=== PATIENT | female | born 1975 | race American Indian/Alaskan Native ===

== ENCOUNTER 2017-01-14 07:05 | Inpatient (IN) | payer MEDICAID ==
[2017-01-13 09:52] LABS: Basophils % (Auto) 0.5 % (0.0-1.8); Eosinophils % (Auto) 1.4 % (0.0-4.3); Hematocrit 36.1 % (30.3-42.9); Mean Corpuscular HGB Conc 33 % (30-34); Mean Corpuscular Hemoglobin 27 pg (28-32); Mean Corpuscular Volume 81 fl (79-97); Platelet Count 273 K/mm3 (140-440); Red Blood Count 4.46 M/mm3 (3.65-5.03); Red Cell Distribution Width 13.6 % (13.2-15.2); White Blood Count 5.1 K/mm3 (4.5-11.0)
--- NOTE | 2017-01-13 09:52 | Anesthesia Consultation ---
Anesthesia Consult and Med Hx Date of service: 01/14/17 - Airway Anesthetic Teeth Evaluation: Good ROM Head & Neck: Adequate Mental/Hyoid Distance: Adequate Mallampati Class: Class II Intubation Access Assessment: Probably Good - Pulmonary Exam CTA: Yes - Cardiac Exam Cardiac Exam: RRR - Pre-Operative Health Status ASA Pre-Surgery Classification: ASA2 Proposed Anesthetic Plan: General - Pulmonary Hx Smoking: Yes (former) - Cardiovascular System Hx Heart Murmur: Yes - Central Nervous System Hx Psychiatric Problems: No - Other Systems Hx Alcohol Use: Yes (occas) Hx Cancer: No - Additional Comments Anesthesia Medical History Comments: First surgery. Negative family hx.
--- NOTE | 2017-01-14 07:19 | Short Stay Summary ---
Short Stay Documentation Date of service: 01/14/17 Narrative H&P: Pt is a 41yo BF LMP 12/26/16 presents for surgical evaluation and treatment of Bilateral ovarian cysts. Pelvic u/s showed a multiloculated right ovarian cyst 8.2 x 5.8cm and a multiloculated left ovarian cyst 3.77 x 2.3cm. Uterus 12.0 x 7.5 x 5.1cm. CA125 elevated at 43.02 She is now scheduled for an Exploratory Laparotomy with Bilateral ovarian cystectomy. - History Principal diagnosis: Pelvic mass/Bilateral ovarian cysts H&P: obtained from office Past Medical History: hypertension (no meds) Social history: no significant social history, - Allergies and Medications Current Medications: Allergies No Known Allergies Allergy (Unverified 01/08/17 11:08) Home Medications Medication Instructions Recorded Confirmed Last Taken Type No Known Home Medications [No 01/08/17 01/08/17 Unknown History Reported Home Medications] - Physical exam General appearance: no acute distress Integumentary: no rash HEENT: Atraumatic Lungs: Clear to auscultation Breasts: deferred Heart: Regular rate Gastrointestinal: normal Female Genitourinary: deferred Rectal Exam: deferred Extremities: no ischemia Neurological: Normal speech - Brief post op/procedure progress note Date of procedure: 01/14/17 Pre-op diagnosis: 1. Pelvic pain 2. Bilateral ovarian cysts Post-op diagnosis: same (with extensive pelvic adhesions) Procedure: 1. Exploratory Laparotomy 2. Bilateral Ovarian cystectomy 3. Lysis of extensive pelvic adhesions Anesthesia: GETA, other (YOLANDA block) Findings: An enlarged uterus with normal tubes bilaterally. A large cystic right ovarian mass, densely adherent in the cul-de-sac and to the right pelvic sidewall - it ruptured intra-operatively spilling ~ 100cc chocolate colored fluid. A smaller solid left ovarian mass. Bilateral tuboovarian adhesions. Normal appendix. Surgeon: ELDON JOHNSON Estimated blood loss: other (200ml) Pathology: list (Right ovarian mass with ovarian cyst wall; solid left ovarian mass) Specimen disposition: to lab Condition: stable - Hospital course Hospital course: Unremarkable. - Disposition Condition at discharge: Good Disposition: DC- TO HOME OR SELFCARE - Discharge Diagnoses (1) Status post ovarian cystectomy Status: Resolved Short Stay Discharge Plan Activity: no restrictions Diet: regular Wound: open to air, keep clean and dry Follow up with: PRIMARY CARE, [Primary Care Provider] - 7 Days ELDON JOHNSON MD [Staff Physician] - 14 Days Prescriptions: HYDROcodone/APAP 5-325 [Eleanor 5-325 mg TAB] 1 each PO Q6HR PRN #30 tablet PRN Reason: Pain, Moderate (4-6) Ibuprofen [Motrin] 800 mg PO Q8HR PRN #30 tablet PRN Reason: Moder Pain Unrelieved By Eleanor
[2017-01-14] MEDS ORDERED: LACTATED RINGERS 1,000 ML IV SCH (08:00)
[2017-01-14] MEDS ORDERED: ANCEF/STERILE WATER 2 GM/20 ML 2 GM/20 ML SYRINGE IV NR (09:00)
[2017-01-14] MEDS ORDERED: ZOFRAN ONE (09:00)
[2017-01-14] MEDS ORDERED: DIPRIVAN 10 MG/ML IV ONE (09:00)
[2017-01-14] MEDS ORDERED: ZEMURON IV ONE (09:00)
[2017-01-14] MEDS ORDERED: XYLOCAINE MPF 2% ONE (09:00)
[2017-01-14] MEDS ORDERED: DECADRON ONE (09:00)
--- NOTE | 2017-01-14 09:06 | Anesthesia Day of Surgery ---
Anesthesia Day of Surgery - Day of Surgery Patient Examined: Yes Patient H&P Reviewed: Yes Patient is NPO: Yes
[2017-01-14] MEDS ORDERED: NEURONTIN PO NR (09:30)
[2017-01-14] MEDS ORDERED: MARCAINE-EPI 0.5%-1:200,000 INFILTRATI ONE (09:30)
[2017-01-14] MEDS ORDERED: SUBLIMAZE IV ONE (09:30)
[2017-01-14] MEDS ORDERED: DECADRON IV ONE (09:30)
[2017-01-14] MEDS ORDERED: VERSED IV NR (09:30)
[2017-01-14] MEDS ORDERED: PEPCID IV NR (09:30)
[2017-01-14] MEDS ORDERED: MARCAINE-EPI/PF 0.5%-1:200,000 INFILTRATI ONE ×4 (09:46→09:56)
[2017-01-14] MEDS ORDERED: XYLOCAINE 1% 20 mL ONE (10:00)
[2017-01-14] MEDS ORDERED: LACTATED RINGERS 1,000 ML ONE (10:39)
[2017-01-14] MEDS ORDERED: ROBINUL ONE ×2 (10:42)
[2017-01-14] MEDS ORDERED: NEOSTIGMINE ONE (10:42)
[2017-01-14] MEDS ORDERED: DILAUDID ONE (11:08)
[2017-01-14] MEDS ORDERED: NACL 0.9% IR ONE ×2 (11:21)
[2017-01-14] MEDS ORDERED: TISSEEL VHSD FROZEN 4 ML SYR TP ONE (11:25)
[2017-01-14] MEDS ORDERED: TORADOL ONE (11:41)
[2017-01-14] MEDS ORDERED: ZOFRAN IV PRN (12:25)
[2017-01-14] MEDS ORDERED: DILAUDID IV PRN (12:25)
--- NOTE | 2017-01-14 12:25 | Post Anesthesia Evaluation ---
- Post Anesthesia Evaluation Patient Participated: Yes Airway Patent: Yes Stable Respiratory Function: Yes Nausea/Vomiting: No Temp > 96.8F: Yes Pain Manageable: Yes Adequeate Hydration: Yes Anesthesia Complications: No Block Receding Appropriately: Not Applicable Patient on Ventilator: No
--- NOTE | 2017-01-14 12:32 | Operative Report ---
Operative Report Operative Report: Date of procedure: 01/14/2017 Pre-operative diagnosis: 1. Pelvic pain 2. Bilateral ovarian cysts Post-operative diagnosis: Same with extensive pelvic adhesions Procedure name(s): 1. Exploratory laparotomy 2. Bilateral ovarian cystectomy 3. Lysis of extensive pelvic adhesions Surgeon: Manuelito Bliss MD Hanging Flags Decorator: None Anesthesia: YOLANDA block followed by general endotracheal intubation EBL: 200 mL's Findings: An enlarged uterus with normal tubes bilaterally. A large right cystic mass densely adherent to the pelvic cul-de-sac and to the right pelvic sidewall. A small left solid ovarian mass. Bilateral tubo-ovarian adhesions. Normal appendix. Procedure: After the patient was correctly identified, she was prepped and draped in the usual sterile fashion and placed in dorsolithotomy position. First the skin knife was used to make a transverse skin incision. The incision was extended down the layer of fascia which was nicked in midline and extended laterally using the Bovie cautery. The rectus muscles were dissected off the rectus fascia both superiorly and inferiorly, the rectus bellies in the midline and the peritoneum was entered under direct visualization. Exploration of the pelvic organs found the uterus to be enlarged with normal tubes bilaterally. There was a large cystic mass extending from the right ovary that was densely adherent in the pelvic cul-de-sac and to the right pelvic sidewall. The mass was being carefully dissected using sharp and blunt dissection, however is ruptured intraoperatively spilling approximately 100 mL' s of chocolate-colored fluid. The cyst and the cyst wall was excised and sent to pathology. The left ovarian mass was found to be solid. It was also excised and sent to pathology. The appendix is found to be normal. Copious amounts of irrigation was then performed. There was some bleeding from the right pelvic sidewall which was made hemostatic using several sutures of 0 Vicryl suture in a [id number] configuration, Tisseel sealant and Interceed. After good hemostasis was achieved the procedure was considered complete. All instruments removed from the abdomen, and the uterus was returned to his normal anatomical position. The peritoneum was then re- approximated using 0 Vicryl suture in a running interlocking fashion, and the rectus muscles were loosely re-approximated using 0 Vicryl suture in a figure-of -eight configuration. The fascia was then re-approximated using 0 Vicryl suture in a running interlocking fashion, and the skin edges re-approximated using 4-0 Vicryl suture in a sub-cuticular fashion. The patient tolerated the procedure well and was transferred to recovery room in stable condition.
[2017-01-14] MEDS ORDERED: TYLENOL PO PRN (12:34)
[2017-01-14] MEDS ORDERED: PERCOCET 5/325 PO PRN (12:34)
[2017-01-14] MEDS ORDERED: MILK OF MAGNESIA PO PRN (12:34)
[2017-01-14] MEDS ORDERED: VASELINE TP PRN (15:42)
[2017-01-14] MEDS: D5LR 1,000 ML IV SCH ×2 (16:11→23:03)
[2017-01-14] MEDS: TORADOL IV SCH ×2 (16:25→22:57)
[2017-01-14] MEDS: ANCEF/NS 1 GM/50 ML 1 GM/50 ML BAG IV SCH (17:00)
[2017-01-14] MEDS: COLACE PO SCH (22:32)
[2017-01-15] MEDS: ANCEF/NS 1 GM/50 ML 1 GM/50 ML BAG IV SCH (02:49)
[2017-01-15] MEDS: TORADOL IV SCH ×2 (05:05→11:09)
[2017-01-15 06:32] LABS: Hematocrit 32.8 % (30.3-42.9); Hemoglobin 10.4 gm/dl (10.1-14.3)
[2017-01-15] MEDS: D5LR 1,000 ML IV SCH (06:52)
--- NOTE | 2017-01-15 09:07 | Progress Note ---
Assessment and Plan - Patient Problems (1) Status post ovarian cystectomy Onset Date: 01/15/17 Current Visit: Yes Status: Resolved Plan to address problem: A: S/P Bilateral ovarian cystectomy - POD #1 Doing well P: Advance diet as tolerated Anticipate discharge to home tomorrow. Subjective - Subjective Date of service: 01/15/17 Principal diagnosis: s/p Bilateral ovarian cystectomy - POD #1 Interval history: Pt is feeling well, tolerating a liquid diet without nausea or vomiting. Patient reports: appetite normal, voiding normally, pain well controlled, flatus , ambulating normally Objective - Vital Signs Latest vital signs: Vital Signs Temp Pulse Resp BP BP Pulse Ox 01/15/17 05:35 16 01/15/17 05:05 16 01/15/17 04:20 98.6 F 56 L 18 115/72 01/15/17 00:00 98.2 F 61 18 113/68 01/14/17 23:27 16 01/14/17 22:57 16 01/14/17 20:00 97.1 F L 74 18 121/77 01/14/17 17:05 98.1 F 89 18 124/77 89 01/14/17 13:30 97.7 F 67 20 134/78 97 01/14/17 13:15 98.0 F 79 16 130/76 98 01/14/17 13:00 72 16 136/79 99 01/14/17 12:45 63 16 126/75 100 01/14/17 12:30 61 16 132/74 100 01/14/17 12:25 61 16 124/72 100 01/14/17 12:20 66 14 127/74 100 01/14/17 12:15 97.9 F 73 14 122/64 100 01/14/17 10:10 75 16 150/77 100 01/14/17 10:05 91 H 13 139/81 100 01/14/17 10:00 84 15 156/89 100 01/14/17 09:58 83 14 141/81 100 Intake and Output 01/14/17 01/15/17 01/15/17 22:59 06:59 14:59 Intake Total 650 2435.416 Output Total 1200 2100 Balance -550 335.416 Intake: IV 50 1835.416 ANCEF/NS 1 GM/50 ML 1 gm 50 In 50 ml @ 100 mls/hr IV Q8H KAREN Rx#:[id number] D5lr 1,000 ml @ 125 mls/ 1835.416 hr IV DIRECT KAREN Rx#: [id number] Oral 600 600 Output: Urine 1200 2100 Indwelling Catheter 1200 2100 Other: Total, Intake Amount 240 120 Total, Output Amount 800 300 Voiding Method Indwelling Catheter - Exam Breasts: Present: deferred Cardiovascular: Present: Regular rate Lungs: Present: Clear to auscultation Abdomen: Present: normal appearance, soft Extremities: Present: normal Incision: Present: normal, dry, intact, dressed - Labs Labs: Laboratory Tests 01/13/17 01/13/17 01/13/17 09:30 09:30 09:30 WBC 5.1 RBC 4.46 Hgb 12.0 Hct 36.1 MCV 81 MCH 27 L MCHC 33 RDW 13.6 Plt Count 273 Lymph % (Auto) 39.3 H Placer % (Auto) 6.2 Eos % (Auto) 1.4 Baso % (Auto) 0.5 Lymph # 2.0 Placer # 0.3 Eos # 0.1 Baso # 0.0 Seg Neutrophils % 52.6 Seg Neutrophils # 2.7 HCG, Qual Negative Blood Type A POSITIVE Antibody Screen Negative 01/15/17 05:54 WBC RBC Hgb 10.4 Hct 32.8 MCV MCH MCHC RDW Plt Count Lymph % (Auto) Placer % (Auto) Eos % (Auto) Baso % (Auto) Lymph # Placer # Eos # Baso # Seg Neutrophils % Seg Neutrophils # HCG, Qual Blood Type Antibody Screen
[2017-01-15] MEDS: COLACE PO SCH ×2 (11:09→21:42)
[2017-01-15] MEDS: NORCO 5/325 PO PRN (21:42)
[2017-01-16] MEDS: COLACE PO SCH (09:09)
[2017-01-16] MEDS: NORCO 5/325 PO PRN (09:09)
[2017-01-16 10:36] VITALS: BP 141/65
== END 2017-01-16 11:05 | disposition home or self-care (01) | DRG 743 ==
LOC: 3A 07:05 → OB 13:14
PROVIDERS: ADMIT Obstetrics & Gynecology; ATTEND Obstetrics & Gynecology
PROC: 0UB20ZZ Excision of Bilateral Ovaries, Open Approach (ICD-10-PCS; principal; 2017-01-14)
PROC: 0DNW0ZZ Release Peritoneum, Open Approach (ICD-10-PCS; 2017-01-14)
DX: N83.201 Unspecified ovarian cyst, right side (principal); N73.6 Female pelvic peritoneal adhesions (postinfective); N83.202 Unspecified ovarian cyst, left side; I10 Essential (primary) hypertension; Z87.891 Personal history of nicotine dependence
CPT/HCPCS: 36415; 64450; 84703; 85014; 85018; 85025; 86850; 86900; 86901; 88305; 88307; A6250; C1765; C9250; J0690; J1100; J1170; J1885; J2250; J2405; J2704; J2710; J3010; J7120; J7121